=== PATIENT | male | born 1980 | race Caucasian/White ===

== ENCOUNTER 2019-12-09 11:08 | Emergency (ER) | payer BC ==
[2019-12-09 11:18] VITALS: BP 120/100
[2019-12-09] MEDS ORDERED: Fluorescein Sodium TOPICAL* 1 MG TEST STRIP OPHTHALMIC ONE (11:25)
[2019-12-09] MEDS ORDERED: Tetracaine 0.5% OPTH.SOL 4 ML* 1 DROP BTL LEFT EYE ONE (11:25)
[2019-12-09] MEDS ORDERED: Eye Irrigation Solution 30 ML BOTTLE LEFT EYE ONE (11:26)
--- NOTE | 2019-12-09 11:43 | UC ---
Eye Complaint HPI - HPI Summary HPI Summary: Pt presents with c/o possible FB in left eye . Pt states he was doing some welding work on 12/07/19 and thinks he got a piece of metal in his left eye. Pt attempted to flush eye out at home but reports that he still feels a FB in it - History of Current Complaint Chief Complaint: UCEye Stated Complaint: EYE COMPLAINT Time Seen by Provider: 12/09/19 11:18 Hx Obtained From: Patient Onset/Duration: Sudden Onset, Lasting Days, Still Present Timing: Constant Severity Initially: Mild Severity Currently: Mild Pain Intensity: 3 Location of Injury: Other - left eye Character: Foreign Body Sensation Aggravating Factor(s): Blinking Alleviating Factor(s): Nothing Associated Signs And Symptoms: Positive: Drainage (Clear) - Risk Factors Penetrating Injury Risk Factor: Projectile Globe Rupture Risk Factors: Negative Acute Glaucoma Risk Factors: Negative Optic Artery Occlusion Risk Factors: Negative - Allergies/Home Medications Allergies/Adverse Reactions: Allergies Allergy/AdvReac Type Severity Reaction Status Date / Time No Known Allergies Allergy Verified 12/09/19 11:13 Home Medications: Home Medications Ofloxacin 0.3% (Eye Drop) [Ocuflox OPTH 0.3% (Eye Drop)] 1 - 2 drop LEFT EYE Q4H #1 btl 12/09/19 [Rx] PMH/Surg Hx/FS Hx/Imm Hx Previously Healthy: Yes - Surgical History Surgical History: None - Family History Known Family History: Positive: Cardiac Disease - Social History Occupation: Employed Full-time Lives: With Family Alcohol Use: None Substance Use Type: None Smoking Status (MU): Never Smoked Tobacco Have You Smoked in the Last Year: No - Immunization History Vaccination Up to Date: Yes Review of Systems All Other Systems Reviewed And Are Negative: Yes Constitutional: Positive: Negative Skin: Positive: Negative Eyes: Positive: Drainage, Eye Redness, Other - FB sensation ENT: Positive: Negative Respiratory: Positive: Negative Cardiovascular: Positive: Negative Gastrointestinal: Positive: Negative Genitourinary: Positive: Negative Motor: Positive: Negative Neurovascular: Positive: Negative Musculoskeletal: Positive: Negative Neurological/Mental Status: Positive: Negative Psychological: Positive: Negative Is Patient Immunocompromised?: No Physical Exam Triage Information Reviewed: Yes Appearance: Well-Appearing Vital Signs: Initial Vital Signs Temp 98.6 F 12/09/19 11:13 Pulse 88 12/09/19 11:13 Resp 15 12/09/19 11:13 BP 120/100 12/09/19 11:13 Pulse Ox 96 12/09/19 11:13 Vital Signs Reviewed: Yes Eyes: Positive: Discharge - clear, eye redness, FB visualized in center of eye at 5 oclock position of pupil. ENT Exam: Normal Dental Exam: Normal Neck exam: Normal Respiratory: Positive: No respiratory distress Musculoskeletal Exam: Normal Neurological Exam: Normal Psychological Exam: Normal Skin Exam: Normal Eye Complaint Course/Dx - Course Course Of Treatment: left eye numbed with tetracaine ophthalmic drops, drops applied. eye stained with fluglo, FB appreciated at 5 o'clock position in pupil area, 20 and 18 gauge needle used to dislodge FB, and flushed from eye . Pt tolerated procedure well. - Differential Dx/Diagnosis Differential Diagnosis/HQI/PQRI: Corneal Abrasion, Foreign Body Provider Diagnosis: Foreign body of left eye Discharge ED - Sign-Out/Discharge Documenting (check all that apply): Patient Departure All imaging exams completed and their final reports reviewed: No Studies - Discharge Plan Condition: Stable Disposition: HOME Prescriptions: Ofloxacin 0.3% (Eye Drop) [Ocuflox OPTH 0.3% (Eye Drop)] 1 - 2 drop LEFT EYE Q4H #1 btl Patient Education Materials: Eye Foreign Body (ED) Referrals: Price Mcbride OD [Doctor of Osteopathy] - As Soon As Possible Rony Chavez MD [Medical Doctor] - As Soon As Possible Additional Instructions: Please follow up with an eye care provider immediately. Please call tomorrow to get a follow up appointment as soon as possible. - Billing Disposition and Condition Condition: STABLE Disposition: Home
== END 2019-12-09 11:50 | disposition home or self-care (01) ==
LOC: UCCORT 11:08
DX: T15.02XA Foreign body in cornea, left eye, initial encounter (principal); X58.XXXA Exposure to other specified factors, initial encounter; Y93.89 Activity, other specified; Y92.9 Unspecified place or not applicable; Y99.0 Civilian activity done for income or pay
CPT/HCPCS: 65220; 99202; A9270-GY; G0463